=== PATIENT | female | born 1935 | race Caucasian/White ===

== ENCOUNTER 2022-03-03 14:05 | Inpatient (IN) | payer OTHER ==
[~2022-03-03] VITALS: Ht 162.6 cm; Wt 83.9 kg
[2022-03-03 14:10] VITALS: BP_SYST 163
[2022-03-03] MEDS ORDERED: IPRATROPIUM/ALBUTEROL SULFATE 3 ML AMPUL.NEB (DUONEB) INH ONE (14:15)
[2022-03-03] MEDS ORDERED: methylPREDNISolone SOD SUCC/PF 62.5 MG/ML VIAL IVP ONE (14:15)
--- NOTE | 2022-03-03 15:10 | NUR ---
RT AT BEDSIDE, PLACING PT ON BIPAP. PT TOLERATING WELL.
[2022-03-03 15:39] LABS: ANION GAP 9 (5-15); CALCIUM 9.1 mg/dL (8.4-11.0); CHLORIDE 98 mmol/L (98-107); CREATININE 1.31 mg/dL (0.55-1.30); GLUCOSE 115 mg/dL (70-99); POTASSIUM 3.5 mmol/L (3.5-5.1); SODIUM SERUM 141 mmol/L (136-145); UREA NITROGEN, BLOOD 26 mg/dL (8-21)
[2022-03-03 15:51] LABS: ALANINE AMINOTRANSFERASE 20 U/L (12-78); ALBUMIN 3.5 g/dL (3.4-4.8); ASPARTATE AMINOTRANSFERASE 30 U/L (10-37); TOTAL BILIRUBIN 0.8 mg/dL (0.0-1.0)
[2022-03-03 15:52] LABS: BASOPHILS % (AUTO) 0.3 % (0.0-2.0); EOSINOPHILS # (AUTO) 0.1 K/uL (0.0-0.4); EOSINOPHILS % (AUTO) 0.7 % (0.0-4.0); HEMOGLOBIN 13.7 g/dL (12.0-16.0); LYMPHOCYTES # (AUTO) 1.7 K/uL (1.0-5.5); LYMPHOCYTES % (AUTO) 16.3 % (20.5-51.5); MEAN CORPUSCULAR HEMOGLOBIN 30 pg (27-31); MEAN CORPUSCULAR HGB CONC 33 % (32-36); MEAN CORPUSCULAR VOLUME 89 fL (79.0-98.0); MONOCYTES # (AUTO) 1.3 K/uL (0.0-1.0); MONOCYTES % (AUTO) 12.5 % (1.7-9.3); NEUTROPHILS # (AUTO) 7.4 K/uL (1.8-7.7); NEUTROPHILS % (AUTO) 70.2 % (40.0-70.0); PLATELET COUNT (AUTO) 155 K/uL (130-430); RED BLOOD CELL COUNT(AUTO) 4.62 MIL/uL (4.2-6.2); RED CELL DISTRIBUTION WIDTH 13.7 % (9.0-15.0); WHITE BLOOD COUNT (AUTO) 10.6 K/uL (4.8-10.8)
--- NOTE | 2022-03-03 15:56 | NUR ---
PT REQUESTING WATER, TOLERATING WELL.
--- NOTE | 2022-03-03 16:36 | NUR ---
PT REQUESTING RT TO BEDSIDE, RT CALLED. PT IN NAD. ON BIPAP @98%. SKIN /D/I.
--- NOTE | 2022-03-03 17:12 | NUR ---
RICHARD DTR CALLED, UPDATED ON STATUS, LABS AND VITALS.
--- NOTE | 2022-03-03 18:12 | NUR ---
PT SITTING UP IN BED, IN NAD. TOLERATING BIPAP WELL.
--- NOTE | 2022-03-03 18:14 | NUR ---
Specimen collected for MRSA, Flu, and COvid from the bilateral nares, pt tolerated well.
[2022-03-03] MEDS ORDERED: ONDANSETRON HCL 4 MG/2 ML VIAL IVP PRN (18:45)
[2022-03-03] MEDS ORDERED: NALOXONE HCL 0.4 MG/ML AMP (NARCAN) IVP PRN (18:45)
[2022-03-03] MEDS ORDERED: MORPHINE 4 MG INJ. 4 MG/ML VIAL IVP PRN (18:45)
--- NOTE | 2022-03-03 18:59 | NUR ---
Patient will be admitted to care of DR ACOSTA. Admitted to unit. Will go to room . Belongings list completed. Complete and up to date summary report printed. SBAR report to be given at bedside with opportunity for questions.
--- NOTE | 2022-03-03 19:18 | NUR ---
PATIENT TRANSFERRED TO ICU FROM ER AT 1655. PATIENT IN BED, CPAP 12L 50%, COVID +, A/OX4, ENDORSED CONTINUATION OF CARE AND ADMISSION TO SIGN LANGUAGE TRANSLATOR.
[2022-03-03 20:00] VITALS: BP_SYST 134
[2022-03-03 21:00] VITALS: BP_SYST 125
[2022-03-03 22:00] VITALS: BP_SYST 142
[2022-03-03] MEDS: METHYLPREDNISOLONE SOD SUCC 40 MG/ML VIAL IVP SCH (22:59)
[2022-03-03 23:00] VITALS: BP_SYST 146
[2022-03-03] MEDS: LORazepam 2 MG/ML VIAL IVP PRN (23:01)
[2022-03-03] MEDS: D5/0.45 NS 1,000 ML IV SCH (23:02)
[2022-03-04] VITALS (24 sets, daily range): BP systolic 89–143
--- NOTE | 2022-03-04 01:49 | NUR ---
IV RE-INSERTION: Restarted on right forearm . Successful after 1 attempt with 20ga angiocath. Will observe for any signs of infiltration.
[2022-03-04] MEDS: ALBUTEROL SULFATE 0.083% 2.5 MG/3 ML VIAL.NEB INH SCH ×3 (02:25→07:00)
[2022-03-04] MEDS: IPRATROPIUM BROM 0.5 MG/2.5 ML VIAL.NEB (ATROVENT) INH SCH ×3 (02:26→07:00)
[2022-03-04] MEDS: D5/0.45 NS 1,000 ML IV SCH ×2 (04:00→12:38)
[2022-03-04 06:27] LABS: HEMATOCRIT 37.9 % (36-48); HEMOGLOBIN 12.9 g/dL (12.0-16.0); LYMPHOCYTES % (AUTO) 10.1 % (20.5-51.5); MEAN CORPUSCULAR HEMOGLOBIN 30 pg (27-31); MEAN CORPUSCULAR HGB CONC 34 % (32-36); MEAN CORPUSCULAR VOLUME 88 fL (79.0-98.0); MONOCYTES # (AUTO) 0.5 K/uL (0.0-1.0); NEUTROPHILS # (AUTO) 8.7 K/uL (1.8-7.7); NEUTROPHILS % (AUTO) 84.9 % (40.0-70.0); PLATELET COUNT (AUTO) 149 K/uL (130-430); RED BLOOD CELL COUNT(AUTO) 4.29 MIL/uL (4.2-6.2); RED CELL DISTRIBUTION WIDTH 13.8 % (9.0-15.0); WHITE BLOOD COUNT (AUTO) 10.2 K/uL (4.8-10.8)
[2022-03-04 06:39] LABS: ANION GAP 8 (5-15); CALCIUM 8.6 mg/dL (8.4-11.0); CHLORIDE 99 mmol/L (98-107); CREATININE 1.27 mg/dL (0.55-1.30); GLUCOSE 213 mg/dL (70-99); POTASSIUM 3.4 mmol/L (3.5-5.1); SODIUM SERUM 140 mmol/L (136-145); UREA NITROGEN, BLOOD 26 mg/dL (8-21)
[2022-03-04] MEDS: METHYLPREDNISOLONE SOD SUCC 40 MG/ML VIAL IVP SCH (09:16)
--- NOTE | 2022-03-04 10:39 | NUR ---
Called Dr. Mora with a consult,spoke with Sofiya from doctors office
[2022-03-04] MEDS ORDERED: ENOXAPARIN SODIUM 40 MG/0.4 ML SYRINGE SUBCUT ONE (11:30)
[2022-03-04 11:44] LABS: BILIRUBIN,URINE NEGATIVE (NEGATIVE); BLOOD, URINE NEGATIVE (NEGATIVE); CLARITY/URINE CLEAR (CLEAR); COLOR,URINE YELLOW (YELLOW); GLUCOSE,URINE NEGATIVE (NEGATIVE); KETONES,URINE TRACE (NEGATIVE); LEUKOCYTE ESTERASE ,URINE TRACE (NEGATIVE); NITRITE, URINE NEGATIVE (NEGATIVE); PH,URINE 5.5 (5.0-8.0); PROTEIN URINE 1+ (NEGATIVE); UROBILINOGEN,URINE 0.2 (0.2-1.0)
--- NOTE | 2022-03-04 11:57 | NUR ---
1145 TITRATED FIO2 TO .40. SAT 96%, RN AWARE, WILL CONTINUE TO MONITOR. Addendum: 03/04/[address] RT Amended: Links added.
[2022-03-04 12:15] LABS: BACTERIA,URINE FEW /HPF (None Seen); RBC,URINE NONE SEEN /HPF (0-3)
[2022-03-04] MEDS: LORazepam 2 MG/ML VIAL IVP PRN ×2 (12:40→21:41)
[2022-03-04] MEDS: DEXAMETHASONE SOD PHOSPHATE 10 MG/ML VIAL IVP SCH (15:44)
[2022-03-04] MEDS: BARICITINIB -Non-Formulary 2 MG TABLET PO SCH (16:46)
[2022-03-04] MEDS: AZITHROMYCIN 500 MG in NS 250 ML IV SCH (18:00)
[2022-03-05] VITALS (20 sets, daily range): BP systolic 106–151
[2022-03-05] MEDS: LORazepam 2 MG/ML VIAL IVP PRN ×2 (03:36→11:20)
[2022-03-05 06:39] LABS: ALANINE AMINOTRANSFERASE 16 U/L (12-78); ALBUMIN 2.7 g/dL (3.4-4.8); ANION GAP 6 (5-15); ASPARTATE AMINOTRANSFERASE 21 U/L (10-37); CALCIUM 8.5 mg/dL (8.4-11.0); CHLORIDE 101 mmol/L (98-107); CREATININE 1.02 mg/dL (0.55-1.30); GLUCOSE 158 mg/dL (70-99); POTASSIUM 3.7 mmol/L (3.5-5.1); SODIUM SERUM 141 mmol/L (136-145); TOTAL BILIRUBIN 0.5 mg/dL (0.0-1.0); UREA NITROGEN, BLOOD 24 mg/dL (8-21)
[2022-03-05 07:13] LABS: BASOPHILS % (AUTO) 0.1 % (0.0-2.0); HEMATOCRIT 37.3 % (36-48); HEMOGLOBIN 12.3 g/dL (12.0-16.0); LYMPHOCYTES # (AUTO) 0.8 K/uL (1.0-5.5); MEAN CORPUSCULAR HEMOGLOBIN 29 pg (27-31); MEAN CORPUSCULAR HGB CONC 33 % (32-36); MEAN CORPUSCULAR VOLUME 89 fL (79.0-98.0); MONOCYTES % (AUTO) 7.4 % (1.7-9.3); NEUTROPHILS # (AUTO) 11.5 K/uL (1.8-7.7); NEUTROPHILS % (AUTO) 86.5 % (40.0-70.0); PLATELET COUNT (AUTO) 181 K/uL (130-430); RED BLOOD CELL COUNT(AUTO) 4.19 MIL/uL (4.2-6.2); RED CELL DISTRIBUTION WIDTH 13.6 % (9.0-15.0); WHITE BLOOD COUNT (AUTO) 13.2 K/uL (4.8-10.8)
[2022-03-05] MEDS: ENOXAPARIN SODIUM 40 MG/0.4 ML SYRINGE SUBCUT SCH (08:24)
[2022-03-05] MEDS: BARICITINIB -Non-Formulary 2 MG TABLET PO SCH (08:24)
[2022-03-05] MEDS: D5/0.45 NS 1,000 ML IV SCH ×3 (11:18→20:00)
[2022-03-05] MEDS: DEXAMETHASONE SOD PHOSPHATE 10 MG/ML VIAL IVP SCH (11:19)
[2022-03-05] MEDS: ALBUTEROL MDI INHALATION 8 GM INH INH PRN (11:54)
[2022-03-05] MEDS: MORPHINE 2 MG/ML INJ. SYRINGE IVP PRN (15:18)
[2022-03-05] MEDS: AZITHROMYCIN 500 MG in NS 250 ML IV SCH (17:37)
--- NOTE | 2022-03-05 19:15 | NUR ---
TRANSFER NOTES FROM ICU TO ROOM 122A PT RECEIVED VIA RECLINER CHAIR WITH DX OF COVID, RESPIRATORY FAILURE AND COPD. PT AA/0X4. HI FLOW O2 20% FIO2 35%. NPO. IV 22 GA RIGHT WRIST D51/2NS@50ML/H CONTINUOUS. SKIN INTACT. MAINTAIN DROPLET ISOLATION PER COVID PROTOCOL. NO ACUTE DISTRESS.
[2022-03-06] VITALS: BP_SYST 158
--- NOTE | 2022-03-06 | NUR ---
PT CONTINUES IN RECLINER. STANDING FOR BED KELSEY PLACEMENT WITH JORGE LUIS-CARE AFTER EACH USE. RT WITH CPAP APPLIED FOR NIGHT. PT TOLERATING WELL. STATES PREFERS A SMALLER MASK. WILL RELAY TO RT. PT CONCERNS. O2 SATS MAINTAINED MID TO HIGH 90'S. CONTINUE WITH SAFETY AND COMFORT MEASURES.
[2022-03-06] MEDS: LORazepam 2 MG/ML VIAL IVP PRN (00:51)
[2022-03-06 04:00] VITALS: BP_SYST 154
[2022-03-06 06:50] LABS: BASOPHILS % (AUTO) 0.1 % (0.0-2.0); HEMOGLOBIN 12.6 g/dL (12.0-16.0); LYMPHOCYTES # (AUTO) 0.9 K/uL (1.0-5.5); LYMPHOCYTES % (AUTO) 8.4 % (20.5-51.5); MEAN CORPUSCULAR HEMOGLOBIN 30 pg (27-31); MEAN CORPUSCULAR HGB CONC 33 % (32-36); MEAN CORPUSCULAR VOLUME 89 fL (79.0-98.0); MONOCYTES # (AUTO) 0.9 K/uL (0.0-1.0); MONOCYTES % (AUTO) 8.4 % (1.7-9.3); NEUTROPHILS # (AUTO) 9.3 K/uL (1.8-7.7); NEUTROPHILS % (AUTO) 83.1 % (40.0-70.0); PLATELET COUNT (AUTO) 177 K/uL (130-430); RED BLOOD CELL COUNT(AUTO) 4.28 MIL/uL (4.2-6.2); RED CELL DISTRIBUTION WIDTH 13.9 % (9.0-15.0); WHITE BLOOD COUNT (AUTO) 11.2 K/uL (4.8-10.8)
[2022-03-06] MEDS: D5/0.45 NS 1,000 ML IV SCH (06:51)
[2022-03-06 07:10] LABS: ANION GAP 6 (5-15); C-REACTIVE PROTEIN QUANT 1.7 mg/dL (0-0.5); CALCIUM 8.9 mg/dL (8.4-11.0); CHLORIDE 102 mmol/L (98-107); CREATININE 1.05 mg/dL (0.55-1.30); GLUCOSE 129 mg/dL (70-99); POTASSIUM 3.6 mmol/L (3.5-5.1); SODIUM SERUM 142 mmol/L (136-145); UREA NITROGEN, BLOOD 25 mg/dL (8-21)
--- NOTE | 2022-03-06 07:22 | NUR ---
rt notes 0722 Switched pt to vapotherm 20L 35% FIO2. Pt tolerating well. pt saturating 95%. will monitor pt.
--- NOTE | 2022-03-06 07:30 | NUR ---
HAND-OFF REPORT TO A.M NURSE. CPAP OFF AND HI FLOW O2 ON. PT A.M CARE WITH NEW LINENS AND GOWN. CONTINUES IN RECLINER. RELINQUISHED CARE OF PT AT THIS TIME.
[2022-03-06 08:00] VITALS: BP_SYST 149
[2022-03-06] MEDS: MORPHINE 2 MG/ML INJ. SYRINGE IVP PRN (08:26)
[2022-03-06] MEDS: ENOXAPARIN SODIUM 40 MG/0.4 ML SYRINGE SUBCUT SCH ×2 (08:26→20:34)
--- NOTE | 2022-03-06 08:40 | NUR ---
PAGED PAGED MARIA A MARCIAL AT [phone] SPOKE WITH KATE.
[2022-03-06] MEDS: DEXAMETHASONE SOD PHOSPHATE 10 MG/ML VIAL IVP SCH (08:42)
[2022-03-06 11:12] LABS: ERYTHROCYTE SEDIMENTATION RATE 33 MM/HR (0-20)
--- NOTE | 2022-03-06 11:18 | NUR ---
CONSULTATION PAGED REASON FOR CONSULTATION:ELEVATED D-DIMER WAS CONSULT CALLED?Y -PERSON WHO WAS NOTIFIED:RODRIGO CONSULTING PHYSICIAN:WILD [employer]EL[employer] MUSIC COPYIST SPECIALTY:HEMATOLOGY MUSIC COPYIST PHONE NUMBER:[phone] REQUESTING PHYSICIAN:MARIA A MARCIAL
[2022-03-06 12:00] VITALS: BP_SYST 142
[2022-03-06] MEDS: NORMAL SALINE 5 ML DISP.SYRIN IVF SCH ×2 (14:00→20:35)
[2022-03-06] MEDS: BARICITINIB -Non-Formulary 2 MG TABLET PO SCH (14:09)
[2022-03-06 16:00] VITALS: BP_SYST 153
[2022-03-06] MEDS: AZITHROMYCIN 500 MG in NS 250 ML IV SCH (18:43)
--- NOTE | 2022-03-06 19:30 | NUR ---
PT HAS HAD AN UNEVENTFUL SHIFT TODAY. PT SAT UP IN RECLINER CHAIR WITH HIGH FLOW NC IN USE. VSS. NO S/S RESPIRATORY DISTRESS NOTED. PT ENCOURAGED TO USE INCENTIVE SPIROMETER. PT HAS MAINTAINED CONTINENCE VIA USE OF BED KELSEY WITH ASS'T. PT CONTINUES ON IV ANTIBIOTIC THERAPY ASPER ORDERED. NEW IV SITE PLACED IN RFA 20 G- PT TOLERATED PROCEDURE WITHOUT COMPLAINTS. PT HAS BEEN ALERT AND TALKATIVE THROUGHOUT THE SHIFT. SHE APPEARED TO BE IN GOOD SPIRITS. REPORT GIVEN TO AILYN GOTTI FOR CONTINUUM OF CARE/
[2022-03-06 20:00] VITALS: BP_SYST 144
--- NOTE | 2022-03-06 21:10 | NUR ---
RT PLACED ON BIPAP@ 2105. CPAP OF 12 35%FIO2. SPO2 96. RN NOTIFIED.
[2022-03-07] VITALS: BP_SYST 144
[2022-03-07] MEDS: LORazepam 2 MG/ML VIAL IVP PRN (00:50)
[2022-03-07 01:03] VITALS: BP_SYST 156
--- NOTE | 2022-03-07 05:26 | NUR ---
RT PT CALLED FOR RT AND STATED THAT THEY DIDN'T WANT TO BE ON THE BIPAP ANY MORE DUE TO IT BEING UNCOMFORTABLE, ALARMING, AND WAS BLOWING AIR IN HER EYES. PLACED BACK ON HIGH FLOW NASAL CANNULA 20LPM 35% FI02 @0523. PT TOLERATED WELL. SPO2 97%, NO RESP. DISTRESS NOTED.
[2022-03-07] MEDS: NORMAL SALINE 5 ML DISP.SYRIN IVF SCH ×3 (06:07→22:00)
[2022-03-07 06:53] LABS: BASOPHILS % (AUTO) 0.1 % (0.0-2.0); HEMATOCRIT 37.9 % (36-48); HEMOGLOBIN 12.6 g/dL (12.0-16.0); LYMPHOCYTES # (AUTO) 1.1 K/uL (1.0-5.5); LYMPHOCYTES % (AUTO) 11.1 % (20.5-51.5); MEAN CORPUSCULAR HEMOGLOBIN 30 pg (27-31); MEAN CORPUSCULAR HGB CONC 33 % (32-36); MEAN CORPUSCULAR VOLUME 89 fL (79.0-98.0); MONOCYTES # (AUTO) 0.9 K/uL (0.0-1.0); MONOCYTES % (AUTO) 8.5 % (1.7-9.3); NEUTROPHILS # (AUTO) 8.1 K/uL (1.8-7.7); NEUTROPHILS % (AUTO) 80.3 % (40.0-70.0); PLATELET COUNT (AUTO) 188 K/uL (130-430); RED BLOOD CELL COUNT(AUTO) 4.26 MIL/uL (4.2-6.2); RED CELL DISTRIBUTION WIDTH 13.4 % (9.0-15.0); WHITE BLOOD COUNT (AUTO) 10.1 K/uL (4.8-10.8)
[2022-03-07 07:09] LABS: ANION GAP 3 (5-15); C-REACTIVE PROTEIN QUANT 0.4 mg/dL (0-0.5); CHLORIDE 103 mmol/L (98-107); CREATININE 1.18 mg/dL (0.55-1.30); GLUCOSE 104 mg/dL (70-99); POTASSIUM 3.7 mmol/L (3.5-5.1); SODIUM SERUM 142 mmol/L (136-145); UREA NITROGEN, BLOOD 26 mg/dL (8-21)
[2022-03-07] MEDS: BARICITINIB -Non-Formulary 2 MG TABLET PO SCH (10:34)
[2022-03-07] MEDS: DEXAMETHASONE SOD PHOSPHATE 10 MG/ML VIAL IVP SCH (10:35)
[2022-03-07] MEDS: ENOXAPARIN SODIUM 40 MG/0.4 ML SYRINGE SUBCUT SCH ×2 (10:35→21:00)
[2022-03-07 10:52] LABS: ERYTHROCYTE SEDIMENTATION RATE 18 MM/HR (0-20)
[2022-03-07 12:52] VITALS: BP_SYST 150
[2022-03-07] MEDS: AZITHROMYCIN 500 MG in NS 250 ML IV SCH (16:02)
[2022-03-07 16:07] VITALS: BP_SYST 151
--- NOTE | 2022-03-07 19:30 | NUR ---
PT HAS HAD AN UNEVENTFUL SHIFT TODAY. PT SAT UP IN RECLINER CHAIR WITH HIGH FLOW NC IN USE. VSS. NO S/S RESPIRATORY DISTRESS NOTED. PT ENCOURAGED TO USE INCENTIVE SPIROMETER. PT HAS MAINTAINED CONTINENCE VIA USE OF BED KELSEY WITH ASS'T. PT CONTINUES ON IV ANTIBIOTIC THERAPY ASPER ORDERED. REPORT GIVEN TO AILYN GOTTI
--- NOTE | 2022-03-07 19:30 | NUR ---
HAND-OFF REPORT FROM A.M. NURSE. USING POTTY CHAIR TO INSTEAD OF BED KELSEY TODAY. DAUGHTER TO BRING OWN PT CPAP MASK. UNEVENTFUL DAY. ASSUMED CARE OF PT AT THIS TIME. PT RECEIVED A/OX4 IN LAZY BOY WATCHING TV.
[2022-03-07 20:00] VITALS: BP_SYST 149
[2022-03-08] VITALS (7 sets, daily range): BP systolic 137–155
--- NOTE | 2022-03-08 | NUR ---
PT VOICED DOUBTS TO HER IMPROVEMENT. REMINDED PT HOW FAR SHE HAS COME IN 3 DAYS WITH HER ABILITY TO STAND AND STABILIZE HERSELF WIT MINIMAL CONTACT ASSIST FROM ME. 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 SHE BEGAN TO SMILE AND FELT BETTER. PT TEACHING CONCERNING HER STEADY USE OF CALL LIGHT EVERY 30 MINUTES NOT REALISTIC IN A COVID SETTING. PT STATED UNDERSTOOD BUT STILL SAT ON LIGHT MOST OF SHIFT. DAUGHTER CALLED AND STATED SHE EPLAINED TO HER MOM THIS IS NOT AN ICU SETTING WHERE SHE IS USE TO RECEIVING ALMOST ONE TO ONE CARE. DAUGHTER UNDERSTOOD FROM NURSING STAND POINT AND CALLED TO OFFER "US" SUPPORT.
--- NOTE | 2022-03-08 01:15 | NUR ---
POSSIBLE UTI PT HAS REQUESTED TO USE THE BEDPAN ABOUT EVERY HOUR. PT REPORTS THAT SHE FEELS LIKE SHE HAS A UTI, WHICH IS COMMON FOR HER. EXPLAINED TO PT THIS INFO WILL BE PASSED ON TO MD. ALSO ENCOURAGED PT TO REMEMBER TO TELL MD WHEN SHE SEES HIM
[2022-03-08] MEDS: NORMAL SALINE 5 ML DISP.SYRIN IVF SCH ×3 (06:00→22:07)
[2022-03-08 06:54] LABS: ALANINE AMINOTRANSFERASE 70 U/L (12-78); ALBUMIN 2.9 g/dL (3.4-4.8); ANION GAP 2 (5-15); ASPARTATE AMINOTRANSFERASE 58 U/L (10-37); C-REACTIVE PROTEIN QUANT 0.2 mg/dL (0-0.5); CHLORIDE 103 mmol/L (98-107); CREATININE 1.17 mg/dL (0.55-1.30); GLUCOSE 119 mg/dL (70-99); POTASSIUM 3.8 mmol/L (3.5-5.1); SODIUM SERUM 141 mmol/L (136-145); TOTAL BILIRUBIN 0.5 mg/dL (0.0-1.0); UREA NITROGEN, BLOOD 29 mg/dL (8-21)
--- NOTE | 2022-03-08 07:15 | NUR ---
OPENING NOTE: REPORT GIVEN BY NOC RN, ALL CARES ASSUMED.
[2022-03-08 07:16] LABS: BASOPHILS % (AUTO) 0.3 % (0.0-2.0); HEMATOCRIT 38.3 % (36-48); LYMPHOCYTES # (AUTO) 0.9 K/uL (1.0-5.5); MEAN CORPUSCULAR HEMOGLOBIN 30 pg (27-31); MEAN CORPUSCULAR HGB CONC 34 % (32-36); MEAN CORPUSCULAR VOLUME 88 fL (79.0-98.0); MONOCYTES # (AUTO) 0.9 K/uL (0.0-1.0); MONOCYTES % (AUTO) 9.9 % (1.7-9.3); NEUTROPHILS # (AUTO) 7.1 K/uL (1.8-7.7); NEUTROPHILS % (AUTO) 79.8 % (40.0-70.0); PLATELET COUNT (AUTO) 204 K/uL (130-430); RED BLOOD CELL COUNT(AUTO) 4.36 MIL/uL (4.2-6.2); RED CELL DISTRIBUTION WIDTH 13.1 % (9.0-15.0); WHITE BLOOD COUNT (AUTO) 8.9 K/uL (4.8-10.8)
--- NOTE | 2022-03-08 07:30 | NUR ---
HAND-OFF REPORT TO A.M NURSE. RELINQUISHED CARE OF PT AT THIS TIME.
--- NOTE | 2022-03-08 07:57 | NUR ---
ASSISTED PATIENT TO BED KELSEY, LARGE URINAL VOID NOTED, CLEAR AND YELLOW WITH NO FOUL ODOR. PATIENT REQUIRES ASSISTANCE TO STAND UP AND DOWN WITH USE OF WALKER. PATIENT REMAINS HIGH RISK FOR FALLS.
[2022-03-08] MEDS: ENOXAPARIN SODIUM 40 MG/0.4 ML SYRINGE SUBCUT SCH ×2 (09:05→22:07)
[2022-03-08] MEDS: BARICITINIB -Non-Formulary 2 MG TABLET PO SCH (09:05)
[2022-03-08 09:48] LABS: ERYTHROCYTE SEDIMENTATION RATE 21 MM/HR (0-20)
--- NOTE | 2022-03-08 10:11 | NUR ---
DR. ACOSTA MAKING ROUNDS, BEDSIDE REPORT GIVEN, MD TO REVIEW CHART AND PLACE ORDERS.
[2022-03-08] MEDS: DEXAMETHASONE SOD PHOSPHATE 10 MG/ML VIAL IVP SCH (11:17)
--- NOTE | 2022-03-08 11:17 | NUR ---
ASSISTED PATIENT WITH BEDPAN, PATIENT UNSTEADY WITH STANDING, WALKER USED WITH GAIT BELT FOR SAFETY. PATIENT REFUSES TO LAY DOWN IN BED AND WANTS TO REMAIN IN CARDIAC CHAIR. RT IN ROOM AND PLACED PATIENT ONTO HI-FLOW. PATIENT NOTED WITH SOB AND PRODUCTIVE COUGH. PATIENT REMAINS ON ISOLATION FOR COVID POSITIVE SWAB, PATIENT IS SYMPTOMATIC.
--- NOTE | 2022-03-08 11:46 | NUR ---
SPOKE WITH PATIENTS DAUGHTER, UPDATES GIVEN AND ALL QUESTIONS ANSWERED.
[2022-03-08] MEDS: AZITHROMYCIN 500 MG in NS 250 ML IV SCH (16:34)
--- NOTE | 2022-03-08 19:21 | NUR ---
CLOSING NOTE: REPORT GIVEN TO NOC RN, ALL CARES ENDORSED.
--- NOTE | 2022-03-08 20:00 | NUR ---
OPENING NOTE PT AOX4, IS ON HIGH FLOW AND SAT'S ARE 94%. PT HAS IV IN THE RIGHT F/A WHICH IS SALINE LOCK. FLUSHED AND IV NOT PATENT. IV REMOVED AND ANOTHER ONE WILL BE PLACED. PT USES BEDPAN AND AND ONLY WANTS TO SIT UP IN THE CHAIR REPORTS SHE CAN'T BREATH IN THE BED. PT CAN VERBALIZE ALL NEED AND ALL SAFETY PRECAUTIONS ARE IN PLACE.
--- NOTE | 2022-03-08 20:15 | NUR ---
SPOKE WITH DAUGHTER PER RICHARD, DAUGHTER SHE REPORT PT IS THE SAME WAY AT HOME. VERY NEEDED AND AND WILL RUN THE GRANDCHILDREN ALL AROUND TO MAKE THEM GET THINGS FRO HER AND BRING IT TO HER ROOM. PT LIKE TO SIT IN HER RECLINER ALL DAY AND WILL NOT LEAVE THE ROOM. DISCUSS WITH MARYLOU WE WILL SET LIMITS WITH PT WHILE STILL INSURING ALL HER NEEDS ARE MET
--- NOTE | 2022-03-08 20:15 | NUR ---
DAUGHTER SPOKE WITH DAUGHTER AND SHE REPORTS THAT THE PT IS NEEDY AND VERY DEMANDING. THE PT WANTS WHAT SHE WANTS AT THAT EXACT MINUTE. EXPLAINED TO DAUGHTER THIS NURSE WILL BE HELPING THE PT TO BE MORE INDEPENDENT THIS SHIFT. DAUGHTER AGREED WITH THE PLAN.
--- NOTE | 2022-03-08 21:00 | NUR ---
CONSTANT CALL LIGHT PT HAS CALLED FOR NURSE ALMOST EVERY 20 MIN. PT CALLS FOR THINGS LIKE I NEED MY BLANKET I AM COLD. BUT WHEN THIS NURSE ARRIVES TO THE ROOM THE PT' S BLANKET IS BEDSIDE HER ON THE BED. NURSE QUESTIONS PT TO WHY SHE DID NOT PUT THE BLANKET ON HER AND PT STATED " I CAN'T DO I AM TOO WEAK." PT TEACHING CONCERNING HER STEADY USE OF CALL LIGHT EVERY 30 MINUTES FOR ISSUE SHE CAN RESOLVE HERSELF. PT STATED SHE UNDERSTOOD.
--- NOTE | 2022-03-08 21:20 | NUR ---
SPOKE WITH DAUGHTER SHE REPORTS PT HAS BEEN CALLING HER NOM STOP ALL DAY AND NOW THE NIGHTWHEN STAFF DOES NOT COME IMMEDIATELY TO THE ROOM. EXPLAINED TO RICHARD THE ONLY TIME SOMEONE IS NOT IN THE ROOM IMMEDIATELY IS IF WE ARE IN ANOTHER ROOM. EXPLAINED TO DAUGHTER SHE MAY NEED TO SET LIMITS WIT PT WELL.
--- NOTE | 2022-03-08 21:30 | NUR ---
IV REPLACED PT HAS NEW IV 22G IN THE L F/A. FLUSHED, PATENT AND SALINE LOCKED
--- NOTE | 2022-03-08 21:45 | NUR ---
CPAP PT C/O OF NO ENERGY. PT REFUSES TO SLEEP IN THE BED REPORTS SHE CAN NOT BREATH AND NEEDS TO SLEEP IN THE CHAIR AND WAS PLACED BACK ON THE CPAP FOR THE NIGHT.
[2022-03-08] MEDS: DIPHENHYDRAMINE INJ 50 MG/ML VIAL IVP PRN (22:04)
[2022-03-08] MEDS: MORPHINE 2 MG/ML INJ. SYRINGE IVP PRN (22:05)
[2022-03-09 01:16] VITALS: BP_SYST 165
[2022-03-09] MEDS: DIPHENHYDRAMINE INJ 50 MG/ML VIAL IVP PRN ×2 (03:33→21:25)
[2022-03-09] MEDS: NORMAL SALINE 5 ML DISP.SYRIN IVF SCH ×3 (03:33→21:15)
[2022-03-09 06:54] LABS: HEMATOCRIT 37.1 % (36-48); HEMOGLOBIN 12.7 g/dL (12.0-16.0); LYMPHOCYTES # (AUTO) 0.9 K/uL (1.0-5.5); LYMPHOCYTES % (AUTO) 9.9 % (20.5-51.5); MEAN CORPUSCULAR HEMOGLOBIN 30 pg (27-31); MEAN CORPUSCULAR HGB CONC 34 % (32-36); MEAN CORPUSCULAR VOLUME 87 fL (79.0-98.0); MONOCYTES # (AUTO) 1.1 K/uL (0.0-1.0); MONOCYTES % (AUTO) 11.4 % (1.7-9.3); NEUTROPHILS # (AUTO) 7.3 K/uL (1.8-7.7); NEUTROPHILS % (AUTO) 78.7 % (40.0-70.0); PLATELET COUNT (AUTO) 202 K/uL (130-430); RED BLOOD CELL COUNT(AUTO) 4.27 MIL/uL (4.2-6.2); RED CELL DISTRIBUTION WIDTH 13.2 % (9.0-15.0); WHITE BLOOD COUNT (AUTO) 9.3 K/uL (4.8-10.8)
[2022-03-09 07:29] LABS: ANION GAP 5 (5-15); CALCIUM 8.9 mg/dL (8.4-11.0); CHLORIDE 99 mmol/L (98-107); CREATININE 1.14 mg/dL (0.55-1.30); GLUCOSE 110 mg/dL (70-99); POTASSIUM 3.6 mmol/L (3.5-5.1); SODIUM SERUM 139 mmol/L (136-145); UREA NITROGEN, BLOOD 29 mg/dL (8-21)
[2022-03-09 08:00] VITALS: BP_SYST 134
[2022-03-09 08:12] LABS: C-REACTIVE PROTEIN QUANT < 0.2 mg/dL (0-0.5)
[2022-03-09] MEDS: ENOXAPARIN SODIUM 40 MG/0.4 ML SYRINGE SUBCUT SCH ×2 (09:32→21:15)
[2022-03-09] MEDS: BARICITINIB -Non-Formulary 2 MG TABLET PO SCH (09:33)
[2022-03-09 11:32] VITALS: BP_SYST 156
[2022-03-09 11:32] LABS: ERYTHROCYTE SEDIMENTATION RATE 17 MM/HR (0-20)
[2022-03-09] MEDS: DEXAMETHASONE SOD PHOSPHATE 10 MG/ML VIAL IVP SCH (12:37)
--- NOTE | 2022-03-09 13:37 | NUR ---
DISCHARGE PLANNING Order for dc planning. Called pts room & cell ph with no answer. Called & spoke with dtr Mirella, kory [phone]. Pt has home health with [facility], which also has a home health(pt on home health not hospice). If goes home upon discharge would like to cont with same home health, if not able to take back then no preference. Dtr can assist but works 4d/wk, if discharges home would hire caregivers, is going to look into caregivers. Is open to short term snf, states that SNF might be best will discuss with pts son & pt. Gave list of [facility] SNF's & Medicare.gov. Also gave [facility], only one in area that takes +covid at this time. States will look up snf's & caregivers and discuss with pt/family. Dtr already has caregiver agencies contact. Received call back from dtr states does not like [facility] that liked [facility]. Would like us to try [facility], is going to look at other SNF's & discuss with family/pt. PT Isiah pending. Updated dc load planner.
[2022-03-09] MEDS: LORazepam 2 MG/ML VIAL IVP PRN ×2 (14:20→21:23)
--- NOTE | 2022-03-09 15:30 | NUR ---
Discharge Planning: DCP faxed pt referral to [facility] [phone] DCP to follow up
[2022-03-09 16:00] VITALS: BP_SYST 150
[2022-03-09 20:00] VITALS: BP_SYST 147
--- NOTE | 2022-03-09 20:00 | NUR ---
OPENING NOTE PT AOX4, IS ON N/C AT 5 L AND SAT'S ARE 96%. PT HAS IV IN THE RIGHT HAND #24 WHICH IS SALINE LOCK. FLUSHED AND IV NOT PATENT. PT IS VERY DEPENDENT ON STAFF AND USE'S HER CALL LIGHT EXCESSIVELY. DISCUSSED WITH PT THE IMPORTANCE OF CALLING ONLY ONCE AND ONCE THE COUNTER SALES PERSON HAS TOLD PT THAT HER NURSE WILL COME, SHE MUST WAIT FOR THIS NURSE I AM IN ANOTHER PT'S ROOM. PT USES BEDPAN AND AND ONLY WANTS TO SIT UP IN THE CHAIR REPORTS SHE CAN'T BREATH IN THE BED. PT CAN VERBALIZE ALL NEED AND ALL SAFETY PRECAUTIONS ARE IN PLACE.
--- NOTE | 2022-03-09 21:16 | NUR ---
LOVENOX PLT IS 202 VERIFIED WITH CARMEN ROBERTSON BEFORE GIVING LOVENOX
--- NOTE | 2022-03-09 23:00 | NUR ---
CHAIR NOT WORKING PT HAD TO BE PLACED INT HE BED THE CHAIR HAS STOPPED WORKING
[2022-03-10] VITALS: BP_SYST 141; BP_SYST 143
--- NOTE | 2022-03-10 01:30 | NUR ---
BED SIDE COMMODE PT HAS MORE ENERGY AND WAS GIVEN A BSC AND TRAINED ON HOW TO GET UP HOLD SELF AND SIT ON BSC. THIS NURSE HAD PT DEMONSTRATE WILL WATCHING AND PT DID GREAT. GAVE PT PLENTY OF PRAISE SHE NEEDS TO LEARN TO BE MORE INDEPENDENT AND CAN START LOOKING FORWARD TO GOING HOME
[2022-03-10] MEDS: NORMAL SALINE 5 ML DISP.SYRIN IVF SCH ×3 (05:28→21:40)
[2022-03-10 06:45] LABS: BASOPHILS % (AUTO) 0.2 % (0.0-2.0); EOSINOPHILS % (AUTO) 0.1 % (0.0-4.0); HEMATOCRIT 38.9 % (36-48); HEMOGLOBIN 12.9 g/dL (12.0-16.0); LYMPHOCYTES # (AUTO) 1.1 K/uL (1.0-5.5); LYMPHOCYTES % (AUTO) 9.5 % (20.5-51.5); MEAN CORPUSCULAR HEMOGLOBIN 29 pg (27-31); MEAN CORPUSCULAR HGB CONC 33 % (32-36); MEAN CORPUSCULAR VOLUME 88 fL (79.0-98.0); MONOCYTES # (AUTO) 1.1 K/uL (0.0-1.0); NEUTROPHILS # (AUTO) 9.1 K/uL (1.8-7.7); NEUTROPHILS % (AUTO) 80.2 % (40.0-70.0); PLATELET COUNT (AUTO) 214 K/uL (130-430); RED BLOOD CELL COUNT(AUTO) 4.43 MIL/uL (4.2-6.2); RED CELL DISTRIBUTION WIDTH 13.3 % (9.0-15.0); WHITE BLOOD COUNT (AUTO) 11.4 K/uL (4.8-10.8)
[2022-03-10 08:00] VITALS: BP_SYST 141
[2022-03-10 08:51] LABS: ERYTHROCYTE SEDIMENTATION RATE 10 MM/HR (0-20)
[2022-03-10 09:04] LABS: ALANINE AMINOTRANSFERASE 53 U/L (12-78); ALBUMIN 2.8 g/dL (3.4-4.8); ANION GAP 6 (5-15); ASPARTATE AMINOTRANSFERASE 27 U/L (10-37); CALCIUM 8.5 mg/dL (8.4-11.0); CHLORIDE 101 mmol/L (98-107); CREATININE 1.19 mg/dL (0.55-1.30); GLUCOSE 105 mg/dL (70-99); POTASSIUM 3.6 mmol/L (3.5-5.1); SODIUM SERUM 141 mmol/L (136-145); TOTAL BILIRUBIN 0.3 mg/dL (0.0-1.0); UREA NITROGEN, BLOOD 32 mg/dL (8-21)
[2022-03-10 09:06] LABS: C-REACTIVE PROTEIN QUANT < 0.2 mg/dL (0-0.5)
[2022-03-10] MEDS: BARICITINIB -Non-Formulary 2 MG TABLET PO SCH (09:42)
[2022-03-10] MEDS: ENOXAPARIN SODIUM 40 MG/0.4 ML SYRINGE SUBCUT SCH ×2 (09:42→21:40)
[2022-03-10] MEDS: DEXAMETHASONE SOD PHOSPHATE 10 MG/ML VIAL IVP SCH (12:35)
[2022-03-10 12:47] VITALS: BP_SYST 127
--- NOTE | 2022-03-10 14:45 | NUR ---
Dietitian recommendations: Continue mechanical soft diet Recommend MVI and vitamin C (500mg) daily for heavy smoker Please refer to nutrition assessment for more details GRETA LANCASTER, MARIPOSA Addendum: 03/10/22 at [address] Amended: Links added.
[2022-03-10 16:22] VITALS: BP_SYST 146
[2022-03-10 20:00] VITALS: BP_SYST 149
--- NOTE | 2022-03-10 20:00 | NUR ---
OPENING NOTE PT AOX4, IS ON N/C AT 5 L AND SAT'S ARE 96%. PT HAS IV IN THE RIGHT HAND #24 WHICH IS SALINE LOCK. FLUSHED AND IV NOT PATENT. PT USES BSC. PT CAN VERBALIZE ALL NEED AND ALL SAFETY PRECAUTIONS ARE IN PLACE
--- NOTE | 2022-03-10 20:30 | NUR ---
ANXIETY PT REPORTS ANXIETY AND WAS GIVEN ATIVAN
--- NOTE | 2022-03-10 21:30 | NUR ---
EXCESSIVE CALL LIGHT PT IS VERY DEPENDENT ON STAFF AND USE'S HER CALL LIGHT EXCESSIVELY. DISCUSSED WITH PT THE IMPORTANCE OF CALLING ONLY ONCE AND ONCE THE RESP THER HAS TOLD PT THAT HER NURSE WILL COME, SHE MUST WAIT FOR THIS NURSE I AM IN ANOTHER PT'S ROOM. EXPLAINED SHE IS [facility] BUT DECLINING WITH HER INDEPENDENCE.
[2022-03-10] MEDS: MORPHINE 2 MG/ML INJ. SYRINGE IVP PRN (21:40)
--- NOTE | 2022-03-10 22:10 | NUR ---
PT GIVEN BENADRYL PT STATES SHE FEELS ITCHY ON THE BACK OF HER LEGS. NO RASH NOTED
[2022-03-11] VITALS: BP_SYST 162
--- NOTE | 2022-03-11 00:20 | NUR ---
transfer of care; SBAR Received SBAR report from AILYN Xiao.
[2022-03-11] MEDS: ALBUTEROL MDI INHALATION 8 GM INH INH PRN (00:35)
[2022-03-11 07:02] LABS: EOSINOPHILS % (AUTO) 0.1 % (0.0-4.0); HEMOGLOBIN 12.6 g/dL (12.0-16.0); LYMPHOCYTES # (AUTO) 1.1 K/uL (1.0-5.5); LYMPHOCYTES % (AUTO) 10.8 % (20.5-51.5); MEAN CORPUSCULAR HEMOGLOBIN 29 pg (27-31); MEAN CORPUSCULAR HGB CONC 33 % (32-36); MEAN CORPUSCULAR VOLUME 88 fL (79.0-98.0); MONOCYTES % (AUTO) 10.5 % (1.7-9.3); NEUTROPHILS # (AUTO) 7.8 K/uL (1.8-7.7); NEUTROPHILS % (AUTO) 78.6 % (40.0-70.0); PLATELET COUNT (AUTO) 214 K/uL (130-430); RED BLOOD CELL COUNT(AUTO) 4.32 MIL/uL (4.2-6.2); RED CELL DISTRIBUTION WIDTH 13.2 % (9.0-15.0); WHITE BLOOD COUNT (AUTO) 9.9 K/uL (4.8-10.8)
[2022-03-11] MEDS: NORMAL SALINE 5 ML DISP.SYRIN IVF SCH ×3 (07:09→21:15)
[2022-03-11 07:13] LABS: ANION GAP 4 (5-15); CALCIUM 8.5 mg/dL (8.4-11.0); CHLORIDE 100 mmol/L (98-107); CREATININE 1.03 mg/dL (0.55-1.30); GLUCOSE 102 mg/dL (70-99); POTASSIUM 3.6 mmol/L (3.5-5.1); SODIUM SERUM 140 mmol/L (136-145); UREA NITROGEN, BLOOD 30 mg/dL (8-21)
[2022-03-11 07:31] LABS: C-REACTIVE PROTEIN QUANT < 0.2 mg/dL (0-0.5)
[2022-03-11 08:00] VITALS: BP_SYST 148
--- NOTE | 2022-03-11 08:00 | NUR ---
Opening notes: PATIENT RESTING IN BEAD. BREATHING EVEN AND NON LABORED TO O2 AT 4L/NC. BED LOCKED, ALARM ON AND IN LOWEST POSITION. FALL AND SAFETY MEASURES REINFORCED. CALL LIGHT WITHIN REACH. CALL LIGHT WITHIN REACH.
[2022-03-11 08:24] VITALS: BP_SYST 149
[2022-03-11] MEDS: BARICITINIB -Non-Formulary 2 MG TABLET PO SCH (08:28)
[2022-03-11] MEDS: ENOXAPARIN SODIUM 40 MG/0.4 ML SYRINGE SUBCUT SCH ×2 (08:29→21:13)
[2022-03-11 11:25] VITALS: BP_SYST 148
[2022-03-11] MEDS: DEXAMETHASONE SOD PHOSPHATE 10 MG/ML VIAL IVP SCH (11:51)
--- NOTE | 2022-03-11 12:30 | NUR ---
RN NOTES: ASSISTED PATIENT TO BSC. NO S/S OF ACUTE DISTRESS NOTED. FALL AND SAFETY MEASURES RENDERED. CALL LIGHT WITHIN REACH.
[2022-03-11] MEDS ORDERED: BARI2TAB PO (12:44)
[2022-03-11] MEDS ORDERED: [UNRECOGNIZED DRUG - CODE] IVP (12:44)
[2022-03-11] MEDS ORDERED: ROCPM1 IV (12:44)
[2022-03-11 15:27] LABS: ERYTHROCYTE SEDIMENTATION RATE 8 MM/HR (0-20)
[2022-03-11 15:48] VITALS: BP_SYST 136
--- NOTE | 2022-03-11 19:28 | NUR ---
CLOSING NOTES: PATIENT RESTING IN BED. NO S/S OF ACUTE DISTRESS NOTED. FALL AND SAFETY MEASURES PROVIDED. NEEDS MET THROUGHOUT SHIFT. ENDORSED TO ACCOUNTS RECEIVABLE ADMINISTRATOR RN.
[2022-03-11 21:00] VITALS: BP_SYST 159
[2022-03-11] MEDS: DIPHENHYDRAMINE INJ 50 MG/ML VIAL IVP PRN (21:13)
[2022-03-12 01:10] VITALS: BP_SYST 149
[2022-03-12] MEDS: NORMAL SALINE 5 ML DISP.SYRIN IVF SCH ×3 (05:29→21:46)
[2022-03-12 08:00] VITALS: BP_SYST 139
--- NOTE | 2022-03-12 08:00 | NUR ---
Opening notes: PATIENT EATING BREAKFAST.HOB ELEVATED. BREATHING EVEN AND NON LABORED TO O2 AT 4L/NC. BED LOCKED, ALARM ON AND IN LOWEST POSITION. FALL AND SAFETY MEASURES REINFORCED. CALL LIGHT WITHIN REACH. CALL LIGHT WITHIN REACH.
--- NOTE | 2022-03-12 09:08 | NUR ---
PHYSICAL THERAPY CO-SIGN The Physical Therapy Progress Notes documented by Physician Internist have been reviewed. Reviewed/Co-Signed by: Martín Del Angel Documentation Done by: TAMI GALLEGOS PTA Addendum: 03/12/22 at 0908 by Martín Del Angel PT Amended: Links added.
[2022-03-12] MEDS: ENOXAPARIN SODIUM 40 MG/0.4 ML SYRINGE SUBCUT SCH ×2 (09:51→21:42)
[2022-03-12] MEDS: BARICITINIB -Non-Formulary 2 MG TABLET PO SCH (09:52)
--- NOTE | 2022-03-12 10:03 | NUR ---
Discharge Planning: [facility] arranged transport with [facility] [phone] BLS 12:00pm to [facility] [phone] Rm 101. [facility] made CM and nurse aware. Patient packet taken to nurse station. Addendum: 03/12/22 at 1447 by Renetta Bedolla DP SITA arranged transport with [facility] [phone] BLS 6:00pm for Tuesday03/13/2022 to [place] [phone] Rm 101. [facility] made CM aware. Patient packet taken to nurse station.
[2022-03-12 10:12] LABS: BASOPHILS % (AUTO) 0.4 % (0.0-2.0); EOSINOPHILS % (AUTO) 0.2 % (0.0-4.0); HEMATOCRIT 38.6 % (36-48); HEMOGLOBIN 12.8 g/dL (12.0-16.0); LYMPHOCYTES # (AUTO) 1.5 K/uL (1.0-5.5); LYMPHOCYTES % (AUTO) 13.2 % (20.5-51.5); MEAN CORPUSCULAR HEMOGLOBIN 29 pg (27-31); MEAN CORPUSCULAR HGB CONC 33 % (32-36); MEAN CORPUSCULAR VOLUME 88 fL (79.0-98.0); MONOCYTES # (AUTO) 1.2 K/uL (0.0-1.0); MONOCYTES % (AUTO) 10.4 % (1.7-9.3); NEUTROPHILS # (AUTO) 8.6 K/uL (1.8-7.7); NEUTROPHILS % (AUTO) 75.8 % (40.0-70.0); PLATELET COUNT (AUTO) 234 K/uL (130-430); RED BLOOD CELL COUNT(AUTO) 4.39 MIL/uL (4.2-6.2); RED CELL DISTRIBUTION WIDTH 13.5 % (9.0-15.0); WHITE BLOOD COUNT (AUTO) 11.3 K/uL (4.8-10.8)
--- NOTE | 2022-03-12 11:00 | NUR ---
SPOKE RADHA RAMOS (DTR): SPOKE TO RICHARD THE DAUGHTER AND ACKNOWLEDGED TRANSFER TO [facility].
[2022-03-12 11:13] LABS: ALANINE AMINOTRANSFERASE 37 U/L (12-78); ALBUMIN 2.9 g/dL (3.4-4.8); ANION GAP 6 (5-15); ASPARTATE AMINOTRANSFERASE 24 U/L (10-37); CALCIUM 8.9 mg/dL (8.4-11.0); CHLORIDE 101 mmol/L (98-107); CREATININE 1.15 mg/dL (0.55-1.30); GLUCOSE 100 mg/dL (70-99); POTASSIUM 3.6 mmol/L (3.5-5.1); SODIUM SERUM 142 mmol/L (136-145); TOTAL BILIRUBIN 0.5 mg/dL (0.0-1.0); UREA NITROGEN, BLOOD 32 mg/dL (8-21)
[2022-03-12 11:16] LABS: C-REACTIVE PROTEIN QUANT < 0.2 mg/dL (0-0.5)
[2022-03-12 11:24] VITALS: BP_SYST 136
--- NOTE | 2022-03-12 11:30 | NUR ---
REPORT GIVEN (RANDY) [facility]: REPORT GIVEN TO AILYN PADILLA OF [facility].
[2022-03-12 11:32] VITALS: BP_SYST 135
[2022-03-12] MEDS: DEXAMETHASONE SOD PHOSPHATE 10 MG/ML VIAL IVP SCH (12:07)
[2022-03-12 12:54] LABS: ERYTHROCYTE SEDIMENTATION RATE 10 MM/HR (0-20)
--- NOTE | 2022-03-12 14:00 | NUR ---
[facility] COULD ACCEPT PT TODAY: PATIENT COULD NOT BE DISCHARGED TODAY. PER [facility], THEY COULD ONLY ACCEPT PATIENT AFTER 10 DAYS FROM THE DATE THE PATIENT HAD POSITIVE COVID TEST (03/03/2022 AT 1800). TALKED TO CM AND PATIENT WILL BE DISCHARGED TOMORROW AT 1800 (03/13/2022). Addendum: 03/12/22 at 2015 by John Smyth RN CORRECTION: [facility] COULD NOT ACCEPT PATIENT TODAY:
[2022-03-12 16:04] VITALS: BP_SYST 150
--- NOTE | 2022-03-12 18:50 | NUR ---
CLOSING NOTES: PATIENT RESTING IN BED. NO S/S OF ACUTE DISTRESS NOTED. FALL AND SAFETY MEASURES PROVIDED. CALL LIGHT WITHIN REACH
[2022-03-12 19:39] VITALS: BP_SYST 151
[2022-03-12] MEDS: LORazepam 2 MG/ML VIAL IVP PRN (21:45)
[2022-03-13] VITALS: BP_SYST 156
[2022-03-13 00:58] VITALS: BP_SYST 137
--- NOTE | 2022-03-13 00:58 | NUR ---
RT PLACED PT ON CPAP DUE TO WOB. SATURATION 98%. PT TOLERATED WELL. NO RESP. DISTRESS NOTED.
[2022-03-13] MEDS ORDERED: KETAMINE HCL 500 MG/10 ML VIAL ONE (04:12)
[2022-03-13 04:19] VITALS: BP_SYST 159
--- NOTE | 2022-03-13 05:16 | NUR ---
CLOSING NOTE- PT AWAKE AND ORIENTED. USED BSC WITH ASSIST. MEDICATED ATIVAN 1 MG IVP FOR ANXIETY AND SLEEP. USED C-PAP WHILE SLEEP AND N/C 4L/MIN, PURPLISH DISCOLORATION/BRUISES ON SACRUM/ BUTTOCK. OPEN TO AIR. V/S STABLE AFEBRILE. TELE- CONTROLLED A-FIB. PLAN TO DISCHARGE TO SNF TODAY AFTER 18:00 PM.
[2022-03-13] MEDS: NORMAL SALINE 5 ML DISP.SYRIN IVF SCH ×2 (07:11→14:00)
[2022-03-13 07:40] LABS: BASOPHILS % (AUTO) 0.1 % (0.0-2.0); EOSINOPHILS % (AUTO) 0.1 % (0.0-4.0); HEMATOCRIT 37.8 % (36-48); HEMOGLOBIN 12.5 g/dL (12.0-16.0); LYMPHOCYTES # (AUTO) 1.1 K/uL (1.0-5.5); LYMPHOCYTES % (AUTO) 12.4 % (20.5-51.5); MEAN CORPUSCULAR HEMOGLOBIN 30 pg (27-31); MEAN CORPUSCULAR HGB CONC 33 % (32-36); MEAN CORPUSCULAR VOLUME 89 fL (79.0-98.0); MONOCYTES # (AUTO) 0.9 K/uL (0.0-1.0); MONOCYTES % (AUTO) 10.5 % (1.7-9.3); NEUTROPHILS # (AUTO) 6.7 K/uL (1.8-7.7); NEUTROPHILS % (AUTO) 76.9 % (40.0-70.0); PLATELET COUNT (AUTO) 222 K/uL (130-430); RED BLOOD CELL COUNT(AUTO) 4.25 MIL/uL (4.2-6.2); RED CELL DISTRIBUTION WIDTH 13.4 % (9.0-15.0); WHITE BLOOD COUNT (AUTO) 8.7 K/uL (4.8-10.8)
[2022-03-13 08:00] VITALS: BP_SYST 143
[2022-03-13 08:02] LABS: ANION GAP 4 (5-15); CALCIUM 8.8 mg/dL (8.4-11.0); CHLORIDE 102 mmol/L (98-107); GLUCOSE 106 mg/dL (70-99); POTASSIUM 3.9 mmol/L (3.5-5.1); SODIUM SERUM 142 mmol/L (136-145); UREA NITROGEN, BLOOD 33 mg/dL (8-21)
[2022-03-13 09:57] LABS: C-REACTIVE PROTEIN QUANT < 0.2 mg/dL (0-0.5)
[2022-03-13] MEDS: BARICITINIB -Non-Formulary 2 MG TABLET PO SCH ×2 (10:08→10:14)
[2022-03-13] MEDS: ENOXAPARIN SODIUM 40 MG/0.4 ML SYRINGE SUBCUT SCH (10:09)
[2022-03-13] MEDS ORDERED: D5/0.45 NS 1,000 ML IV SCH (11:15)
[2022-03-13] MEDS: DEXAMETHASONE SOD PHOSPHATE 10 MG/ML VIAL IVP SCH (11:55)
[2022-03-13 12:00] VITALS: BP_SYST 109; BP_SYST 150
[2022-03-13 13:06] LABS: ERYTHROCYTE SEDIMENTATION RATE 5 MM/HR (0-20)
[2022-03-13 16:00] VITALS: BP_SYST 112
--- NOTE | 2022-03-15 07:48 | NUR ---
PHYSICAL THERAPY CO-SIGN The Physical Therapy Progress Notes documented by [facility] Cor[facility] have been reviewed. Reviewed/Co-Signed by: Martín Del Angel Documentation Done by: TAMI GALLEGOS PTA Addendum: 03/15/22 at 0748 by Martín Del Angel PT Amended: Links added.
== END 2022-03-13 18:50 | DRG 871 ==
LOC: SED 14:05 → SMU 17:57 → SIC 19:06 → STU 03-05 18:32
PROVIDERS: ADMIT Preventive Medicine Preventive Medicine/Occupational Environmental Medicine; ATTEND Preventive Medicine Preventive Medicine/Occupational Environmental Medicine
PROC: 5A09357 Assistance with Respiratory Ventilation, Less than 24 Consecutive Hours, Continuous Positive Airway Pressure (ICD-10-PCS; principal; 2022-03-03)
PROC: 5A09357 Assistance with Respiratory Ventilation, Less than 24 Consecutive Hours, Continuous Positive Airway Pressure (ICD-10-PCS; 2022-03-04)
PROC: 5A09357 Assistance with Respiratory Ventilation, Less than 24 Consecutive Hours, Continuous Positive Airway Pressure (ICD-10-PCS; 2022-03-05)
PROC: 5A0935A Assistance with Respiratory Ventilation, Less than 24 Consecutive Hours, High Flow/Velocity Cannula (ICD-10-PCS; 2022-03-05)
PROC: 5A09357 Assistance with Respiratory Ventilation, Less than 24 Consecutive Hours, Continuous Positive Airway Pressure (ICD-10-PCS; 2022-03-06)
PROC: 5A0935A Assistance with Respiratory Ventilation, Less than 24 Consecutive Hours, High Flow/Velocity Cannula (ICD-10-PCS; 2022-03-06)
PROC: XW033E5 Introduction of Remdesivir Anti-infective into Peripheral Vein, Percutaneous Approach, New Technology Group 5 (ICD-10-PCS; 2022-03-06)
PROC: 5A09357 Assistance with Respiratory Ventilation, Less than 24 Consecutive Hours, Continuous Positive Airway Pressure (ICD-10-PCS; 2022-03-07)
PROC: 5A0935A Assistance with Respiratory Ventilation, Less than 24 Consecutive Hours, High Flow/Velocity Cannula (ICD-10-PCS; 2022-03-07)
PROC: 5A09357 Assistance with Respiratory Ventilation, Less than 24 Consecutive Hours, Continuous Positive Airway Pressure (ICD-10-PCS; 2022-03-08)
PROC: 5A0935A Assistance with Respiratory Ventilation, Less than 24 Consecutive Hours, High Flow/Velocity Cannula (ICD-10-PCS; 2022-03-08)
PROC: 5A09357 Assistance with Respiratory Ventilation, Less than 24 Consecutive Hours, Continuous Positive Airway Pressure (ICD-10-PCS; 2022-03-09)
PROC: 5A0935A Assistance with Respiratory Ventilation, Less than 24 Consecutive Hours, High Flow/Velocity Cannula (ICD-10-PCS; 2022-03-09)
PROC: 5A09357 Assistance with Respiratory Ventilation, Less than 24 Consecutive Hours, Continuous Positive Airway Pressure (ICD-10-PCS; 2022-03-13)
DX: A41.9 Sepsis, unspecified organism (principal); J12.82 Pneumonia due to coronavirus disease 2019; J96.21 Acute and chronic respiratory failure with hypoxia; U07.1 COVID-19; J44.1 Chronic obstructive pulmonary disease with (acute) exacerbation; N17.9 Acute kidney failure, unspecified; D68.8 Other specified coagulation defects; J44.0 Chronic obstructive pulmonary disease with (acute) lower respiratory infection; E66.9 Obesity, unspecified; E88.09 Other disorders of plasma-protein metabolism, not elsewhere classified; R53.81 Other malaise; R73.9 Hyperglycemia, unspecified; F17.200 Nicotine dependence, unspecified, uncomplicated; Z88.8 Allergy status to other drugs, medicaments and biological substances; Z79.899 Other long term (current) drug therapy; Z91.09 Other allergy status, other than to drugs and biological substances; Z79.01 Long term (current) use of anticoagulants; Z68.31 Body mass index [BMI] 31.0-31.9, adult
CPT/HCPCS: 36415; 36600; 71045; 80048; 80053; 81000; 82803-TC; 84484; 85025; 85379; 85651-TC; 86140; 87081; 87086; 93005; 93970; 94640; 94660; 94760; 96374; 97116-GP; 97163-GP; 97530-GP; 99291; J0456; J0696; J1030; J1100; J1200; J1650; J2060; J2270; J2405; J2930; J7050; J7060; J7613

== ENCOUNTER 2024-03-09 22:38 | Inpatient (IN) | payer OTHER ==
[~2024-03-09] VITALS: Ht 165.1 cm; Wt 100.4 kg
[~2024-03-09 22:38] MED LIST: BARI2TAB PO; ROCPM1 IV; [UNRECOGNIZED DRUG - CODE] IVP
[2024-03-09 22:45] VITALS: BP_SYST 209; PULSE 85; RESP 26; TEMP 96.8; O2SAT 99
[2024-03-09] MEDS ORDERED: AZITHROMYCIN 500 MG/VIAL (ZITHROMAX) IV ONE (23:35)
[2024-03-09] MEDS: methylPREDNISolone SOD SUCC/PF 62.5 MG/ML VIAL IVP ONE (23:38)
[2024-03-09] MEDS: FUROSEMIDE 40 MG/4 ML VIAL IVP ONE (23:42)
[2024-03-09 23:45] LABS: BASOPHILS # (AUTO) 0.1 K/uL (0.0-0.2); BASOPHILS % (AUTO) 0.9 % (0.0-2.0); EOSINOPHILS # (AUTO) 0.2 K/uL (0.0-0.4); EOSINOPHILS % (AUTO) 2.2 % (0.0-4.0); LYMPHOCYTES # (AUTO) 2.1 K/uL (1.0-5.5); LYMPHOCYTES % (AUTO) 21.7 % (20.5-51.5); MEAN CORPUSCULAR HEMOGLOBIN 30 pg (27-31); MEAN CORPUSCULAR HGB CONC 33 % (32-36); MEAN CORPUSCULAR VOLUME 91 fL (79.0-98.0); MONOCYTES # (AUTO) 1.1 K/uL (0.0-1.0); MONOCYTES % (AUTO) 11.2 % (1.7-9.3); NEUTROPHILS # (AUTO) 6.3 K/uL (1.8-7.7); PLATELET COUNT (AUTO) 173 K/uL (130-430); RED BLOOD CELL COUNT(AUTO) 4.62 MIL/uL (4.2-6.2); RED CELL DISTRIBUTION WIDTH 14.2 % (9.0-15.0); WHITE BLOOD COUNT (AUTO) 9.9 K/uL (4.8-10.8)
[2024-03-09 23:54] LABS: ALANINE AMINOTRANSFERASE 17 U/L (12-78); ALBUMIN 3.6 g/dL (3.4-4.8); ANION GAP 1 (5-15); ASPARTATE AMINOTRANSFERASE 18 U/L (10-37); BILIRUBIN,DIRECT 0.2 mg/dL (0.0-0.3); CALCIUM 9.5 mg/dL (8.4-11.0); CARBON DIOXIDE 38 mmol/L (23-29); CHLORIDE 103 mmol/L (98-107); GLUCOSE 128 mg/dL (74-106); POTASSIUM 4.3 mmol/L (3.5-5.1); SODIUM SERUM 142 mmol/L (136-145); TOTAL BILIRUBIN 0.6 mg/dL (0.0-1.0); TOTAL PROTEIN, SERUM 8.3 g/dL (6.4-8.3); UREA NITROGEN, BLOOD 16 mg/dL (8-21)
[2024-03-09] MEDS: cefTRIAXone 1 GM IVPB PREMIX 50 ML IV ONE (23:56)
[2024-03-09] MEDS: ALBUTEROL SULFATE 0.083% 2.5 MG/3 ML VIAL.NEB INH ONE (23:58)
[2024-03-10] VITALS (10 sets, daily range): BP systolic 144–161; PULSE 78–94; RESP 18–20; TEMP 96.9–98.3; O2SAT 96–100
[2024-03-10] MEDS: AZITHROMYCIN 500 MG in NS 250 ML IV ONE (00:46)
[2024-03-10] MEDS ORDERED: METO25TA6 PO (02:39)
[2024-03-10] MEDS ORDERED: BUME2TAB7 PO (02:39)
[2024-03-10] MEDS ORDERED: IPRA3AMP9 INH (02:39)
[2024-03-10] MEDS ORDERED: FURO-149 PO (02:39)
[2024-03-10] MEDS ORDERED: LISI-209 PO (02:39)
[2024-03-10] MEDS ORDERED: PRED20TA PO (02:39)
[2024-03-10] MEDS: ALBUTEROL SULFATE 0.083% 2.5 MG/3 ML VIAL.NEB INH ONE (04:53)
[2024-03-10] MEDS: METHYLPREDNISOLONE SOD SUCC 40 MG/ML VIAL IVP SCH (10:42)
[2024-03-10] MEDS ORDERED: HYDROcodone/ACETAMIN 10-325 MG TAB PO PRN (12:00)
[2024-03-10] MEDS ORDERED: LORazepam 2 MG/ML VIAL IVP PRN (12:00)
[2024-03-10] MEDS ORDERED: ONDANSETRON HCL 4 MG/2 ML VIAL IVP PRN (12:00)
[2024-03-10] MEDS ORDERED: HYDROcodone/ACETAMIN 5-325 MG TAB (NORCO/ VICODIN) PO PRN (12:00)
[2024-03-10] MEDS ORDERED: ACETAMINOPHEN 325 MG TABLET PO PRN ×3 (12:00→12:30)
[2024-03-10] MEDS ORDERED: NALOXONE HCL 0.4 MG/ML AMP (NARCAN) IVP PRN ×2 (12:00)
[2024-03-10 12:42] LABS: MEAN CORPUSCULAR HEMOGLOBIN 30 pg (27-31); MEAN CORPUSCULAR HGB CONC 33 % (32-36); MONOCYTES # (AUTO) 0.2 K/uL (0.0-1.0)
[2024-03-10] MEDS: FUROSEMIDE 40 MG TABLET PO ONE (12:48)
[2024-03-10 12:49] LABS: ANION GAP 1 (5-15); CALCIUM 9.7 mg/dL (8.4-11.0); CHLORIDE 102 mmol/L (98-107); CREATININE 0.96 mg/dL (0.55-1.30); GLUCOSE 171 mg/dL (74-106); POTASSIUM 4.1 mmol/L (3.5-5.1); SODIUM SERUM 143 mmol/L (136-145); UREA NITROGEN, BLOOD 20 mg/dL (8-21)
[2024-03-10] MEDS: METOPROLOL TARTRATE 25 MG TABLET PO ONE (12:49)
[2024-03-10 12:51] LABS: CARBON DIOXIDE 40 mmol/L (23-29)
[2024-03-10] MEDS: BUMETANIDE 1 MG TABLET PO ONE (13:57)
[2024-03-10] MEDS: NORMAL SALINE 5 ML DISP.SYRIN IVF SCH (14:00)
[2024-03-10] MEDS: ALBUTEROL SULFATE 0.083% 2.5 MG/3 ML VIAL.NEB INH SCH (15:26)
[2024-03-10] MEDS: IPRATROPIUM BROM 0.5 MG/2.5 ML VIAL.NEB (ATROVENT) INH SCH (15:26)
[2024-03-10 15:39] LABS: BASOPHILS % (AUTO) 0.1 % (0.0-2.0); HEMATOCRIT 42.3 % (36-48); LYMPHOCYTES # (AUTO) 0.9 K/uL (1.0-5.5); LYMPHOCYTES % (AUTO) 11.9 % (20.5-51.5); MEAN CORPUSCULAR VOLUME 91 fL (79.0-98.0); MONOCYTES % (AUTO) 2.8 % (1.7-9.3); NEUTROPHILS # (AUTO) 6.3 K/uL (1.8-7.7); NEUTROPHILS % (AUTO) 85.2 % (40.0-70.0); PLATELET COUNT (AUTO) 182 K/uL (130-430); RED BLOOD CELL COUNT(AUTO) 4.67 MIL/uL (4.2-6.2); RED CELL DISTRIBUTION WIDTH 14.1 % (9.0-15.0); WHITE BLOOD COUNT (AUTO) 7.4 K/uL (4.8-10.8)
[2024-03-10] MEDS: FUROSEMIDE 40 MG/4 ML VIAL IVP SCH (17:22)
[2024-03-10] MEDS: LOSARTAN POTASSIUM 50 MG TABLET (COZAAR) PO SCH (20:20)
[2024-03-10] MEDS: METOPROLOL TARTRATE 25 MG TABLET PO SCH (20:20)
[2024-03-10] MEDS ORDERED: lisinopriL 5 MG TABLET PO SCH (21:00)
[2024-03-11 00:40] VITALS: BP_SYST 153; PULSE 77; RESP 16; TEMP 97.9; O2SAT 97
[2024-03-11 01:15] VITALS: PULSE 81
[2024-03-11 07:00] LABS: ANION GAP 4 (5-15); CALCIUM 9.6 mg/dL (8.4-11.0); CARBON DIOXIDE 38 mmol/L (23-29); CHLORIDE 101 mmol/L (98-107); CREATININE 1.24 mg/dL (0.55-1.30); GLUCOSE 152 mg/dL (74-106); POTASSIUM 3.9 mmol/L (3.5-5.1); SODIUM SERUM 143 mmol/L (136-145); UREA NITROGEN, BLOOD 31 mg/dL (8-21)
[2024-03-11 07:47] LABS: BASOPHILS % (AUTO) 0.1 % (0.0-2.0); HEMATOCRIT 41.3 % (36-48); HEMOGLOBIN 13.5 g/dL (12.0-16.0); LYMPHOCYTES % (AUTO) 7.1 % (20.5-51.5); MEAN CORPUSCULAR HEMOGLOBIN 30 pg (27-31); MEAN CORPUSCULAR HGB CONC 33 % (32-36); MEAN CORPUSCULAR VOLUME 91 fL (79.0-98.0); MONOCYTES # (AUTO) 0.9 K/uL (0.0-1.0); MONOCYTES % (AUTO) 6.4 % (1.7-9.3); NEUTROPHILS # (AUTO) 12.6 K/uL (1.8-7.7); NEUTROPHILS % (AUTO) 86.4 % (40.0-70.0); PLATELET COUNT (AUTO) 183 K/uL (130-430); RED BLOOD CELL COUNT(AUTO) 4.56 MIL/uL (4.2-6.2)
[2024-03-11 07:51] LABS: WHITE BLOOD COUNT (AUTO) 14.6 K/uL (4.8-10.8)
[2024-03-11 08:00] VITALS: O2SAT 96
[2024-03-11] MEDS ORDERED: METOPROLOL TARTRATE 25 MG TABLET PO SCH (09:00)
[2024-03-11] MEDS ORDERED: BUMETANIDE 1 MG TABLET PO SCH (09:00)
[2024-03-11] MEDS ORDERED: FUROSEMIDE 40 MG TABLET PO SCH (09:00)
[2024-03-11] MEDS ORDERED: METO25TA6 PO (10:59)
[2024-03-11] MEDS ORDERED: FURO-149 PO (10:59)
[2024-03-11] MEDS ORDERED: AZIT500T10 PO (10:59)
[2024-03-11] MEDS ORDERED: LOSA-413 PO (10:59)
[2024-03-11] MEDS ORDERED: METH-776 PO (10:59)
[2024-03-11] MEDS ORDERED: IPRA3AMP9 INH (10:59)
[2024-03-11 11:20] VITALS: O2SAT 96
[2024-03-11 11:43] VITALS: BP_SYST 120; PULSE 92; RESP 20; TEMP 97.2; O2SAT 96
[2024-03-11 12:00] VITALS: BP_SYST 135; PULSE 74; RESP 17; TEMP 97.8; O2SAT 97
[2024-03-12] MEDS ORDERED: FUROSEMIDE 40 MG TABLET PO SCH (09:00)
== END 2024-03-11 13:00 | disposition home or self-care (01) | DRG 291 ==
LOC: SED 22:38 → STU 03-10 01:59 → SMU 03-10 15:18
PROVIDERS: ADMIT Preventive Medicine Preventive Medicine/Occupational Environmental Medicine; ATTEND Preventive Medicine Preventive Medicine/Occupational Environmental Medicine
DX: I11.0 Hypertensive heart disease with heart failure (principal); I50.31 Acute diastolic (congestive) heart failure; J96.21 Acute and chronic respiratory failure with hypoxia; J44.0 Chronic obstructive pulmonary disease with (acute) lower respiratory infection; J44.1 Chronic obstructive pulmonary disease with (acute) exacerbation; J43.9 Emphysema, unspecified; J20.9 Acute bronchitis, unspecified; I48.91 Unspecified atrial fibrillation; I25.10 Atherosclerotic heart disease of native coronary artery without angina pectoris; I16.0 Hypertensive urgency; Z96.651 Presence of right artificial knee joint; Z79.899 Other long term (current) drug therapy; Z88.8 Allergy status to other drugs, medicaments and biological substances; Z79.51 Long term (current) use of inhaled steroids; R73.9 Hyperglycemia, unspecified
CPT/HCPCS: 36415; 71045; 80048; 80076; 83880; 85025; 87040; 93005; 93306; 94640; 94660; 94760; 96365; 96375; 97116-GP; 97163-GP; 97530-GP; 99285; J0456; J0696; J1030; J1120; J1940; J2930